=== PATIENT | female | born 1950 | race Caucasian/White ===

== ENCOUNTER → 2021-09-18 | Outpatient (CLI) | payer OTHER | LOC: EXRD 08-22 10:30 | DX: M81.0 Age-related osteoporosis without current pathological fracture (principal) | CPT/HCPCS: 77080 ==

== ENCOUNTER → 2021-10-30 | Outpatient (CLI) | payer OTHER | LOC: KOH-I 10:04 | DX: Z87.891 Personal history of nicotine dependence (principal) | CPT/HCPCS: 71271 ==